=== PATIENT | male | born 1990 | race Caucasian/White ===

== ENCOUNTER 2017-04-30 23:08 | Emergency (ER) | payer MEDICAID ==
[2017-05-01] MEDS: IPRATROPIUM (NEB) 0.5 MG/2.5 ML AMP HHN (01:26)
[2017-05-01] MEDS: ALBUTEROL 0.083% (NEB) 2.5 MG/3 ML AMP HHN (01:26)
== END 2017-05-01 02:13 | disposition home or self-care (01) ==
LOC: FTE 23:08
DX: R09.89 Other specified symptoms and signs involving the circulatory and respiratory systems (principal)
CPT/HCPCS: 94664; 99284-25